=== PATIENT | female | born 1980 | race Caucasian/White ===

== ENCOUNTER → 2020-05-27 14:21 | Outpatient (CLI) | payer OTHER, SELFPAY ==
--- NOTE | ~2020-05-27 | US_ITS ---
EXAMINATION: US pelvic complete EXAM DATE: 05/27/2020 14:38 INDICATION: Missing IUD strings. TECHNIQUE: Pelvic transabdominal sonogram was performed. There are multiple grayscale and Doppler im ages available for interpretation. Comparison is made to prior examination from 08/30/2016. FINDINGS: Uterus measures 10.6 x 3.1 x 3.4 cm, with IUD centrally located inside the endometrial cav ity. Endometrial stripe measures 4 mm, within normal limits. There is no free pelvic fluid. Right adnexa: The ovary measures 3.0 x 2.0 x 2.8 cm and is morphologically normal. Ovarian vascular f low confirmed. Left adnexa: The ovary measures 1.8 x 1.5 x 2.4 cm and is morphologically normal. Ovarian vascular fl ow confirmed. IMPRESSION: 1. Artifact from IUD at expected location Reviewed, dictated and finalized at location A.
== END ==
PROVIDERS: Visit Provider Obstetrics & Gynecology Gynecology
DX: T83.32XA Displacement of intrauterine contraceptive device, initial encounter (principal)
CPT/HCPCS: 76856

== ENCOUNTER 2021-02-15 07:30 | Outpatient (RCR) | payer OTHER, SELFPAY ==
--- NOTE | 2020-11-22 15:49 | PTOPEVAL ---
Thank you for referring Ruth Walsh to [facility].? The patient is scheduled to be seen for therapy?2 x/week for 5 weeks. Please review, sign, date and return this plan of care RANDELL. I agree with and certify that the following plan of care is medically necessary. Referring Physician Date Attending Provider: Fiordaliza Meade MD Referring Provider: Fiordaliza Meade MD/ NANCY Cobos Physical Therapy Evaluation Information Problem Diagnosis right knee and shoulder pain, right ankle sprain Onset 08/03 Cause stepping/twisting (ankle) Subjective Information right ankle: she broke her Query Text:As Reported By Patient/ ankle fracture of fibula and Family level 3 sprain on 08/03. She went to Urgent Care, then to ortho Md at [facility]. She was in a boot for 6 wks, then ankle brace for 1 wk. She is not wearing a brace for the ankle. She reports weakness of the ankle and limited range. Difficulty with some stretches of crossed leg. She c/o pain on the lateral aspect of the ankle. Reports instability with steps. She has not preformed any exercises or therapy after boot removed. She has difficulty with squating motion. She does a combo cross fit and GIA class right knee: pain on medial aspect of patella. Has been hurting since she hurt the ankle. Pain with end range flexion, rowing, steps, squating. right shoulder: landed on right UE when she fell off the step. Pain is the lateral aspect of shoulder. Pain with lifting or reaching behind her back, weighted activities of UE. Pain Assessment Right Ankle(s) Reported Pain Level 1 Pain Description Aching,Dull,Sharp Pain Frequency Continuous Lowest Pain Intensity 1 Greatest Pain Intensity 5 Pain Aggravating Factors Exercise/Activity,Stair
--- NOTE | 2020-11-29 13:28 | PCPTNOTE ---
Patient called & cancelled scheduled appointment this date due to bad weather.
--- NOTE | 2020-12-08 07:28 | PCPTNOTE ---
Patient called & cancelled scheduled appointment this date due to car being in shop and won't have any transportation.
--- NOTE | 2020-12-27 14:29 | PTOPEVAL ---
Thank you for referring Ruth Walsh to [facility].? The patient is scheduled to be seen for therapy?2 x/week for 3 weeks to address shoulder and knee impairments. . Please review, sign, date and return this plan of care RANDELL. I agree with and certify that the following plan of care is medically necessary. Referring Physician Date Attending Provider: Fiordaliza Meade MD Referring Provider: Edy Candelario PA-C Physical Therapy Progress Note Diagnosis right knee and shoulder pain, right ankle sprain Onset 08/03 Cause stepping/twisting (ankle) Additional Evaluation Detail right ankle: ankle fracture of fibula and level 3 sprain on 08/03. She was in a boot for 6 wks, then ankle brace for 1 wk. Subjective Information She reports her ankle does Query Text:As Reported By Patient/ feel better as a result of Family therapy. The ankle range has improved. She has increased ankle pain with crossing her ankles. She c/o stiffness of her ankle in the morning. Improved ability to perform steps. She has improved shoulder motion for reaching behind. 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 She has sharp pain when sleeping on right shoulder for prolonged period. Reports improved knee pain with activities. Improved tolerance with steps and squating activities. Kneeling on the knee is painful. She has been exercising at home with improved tolerance. She has increased knee pain when her form is poor with lunges and squats. She has been more aware of her form. Pain Assessment Right Ankle(s) Reported Pain Level 0 Pain Description Aching Lowest Pain Intensity 0 Greatest Pain Intensity 2 Pain Aggravating Factors Weight Bearing/Standing Right Knee(s) Reported Pain Level 1 Pain Description Aching,Sharp Lowest Pain Intensity 0 Greatest Pain Intensity 3 Right Sh
--- NOTE | 2021-01-19 09:24 | PCPTNOTE ---
Patient called & cancelled scheduled appointment this date and rescheduled for next week.
--- NOTE | 2021-01-24 13:30 | PCPTNOTE ---
Patient called & cancelled scheduled appointment this date due to feeling sick. She did not reschedule at this time.
--- NOTE | 2021-02-15 11:15 | PTOPEVAL ---
Thank you for referring Ruth Walsh to [facility].? Ruth has received 16 therapy visits to address her right shoulder, knee and ankle injury. She cancelled 4 visits. She demonstrates no limitation with ankle and knee with objective measures except mild hip abduction weakness. She denies limitations with LE with daily activities and fitness routine. She demonstrate WFL right shoulder motion and 5/5 strength except for flexion strength. She demonstrates improve scapular stability strength since receiving therapy. She continues to demonstrate test and measures consistent with shoulder impingement and possible internal derangement of shoulder muscles. Will continue PT 1x/wk x 4 weeks to address strengthening exercise for home program. Please review, sign, date and return this plan of care RANDELL. I agree with and certify that the following plan of care is medically necessary. Referring Physician Date Attending Provider: Fiordaliza Meade MD Referring Provider: NANCY Robles Physical Therapy Progress Note Diagnosis right knee and shoulder pain, right ankle sprain Onset 08/03 initial, re-injury to shoulder 01/28/21 Cause stepping/twisting (ankle) Additional Evaluation Detail right ankle: ankle fracture of fibula and level 3 sprain on 08/03. She was in a boot for 6 wks, then ankle brace for 1 wk. Subjective Information SHe denies any pain with her Query Text:As Reported By Patient/ knee. States the proper Family position with activities has corrected the problem. She has right shoulder pain with reaching in all directions. 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 She was seen by her MD, where she was DX with shoulder sprain. Denies any problems with the ankle. Denies any problems with her exercise class. Denies any problems with sleeping, but she does not sleep on her right side. Pain Assessment Right Ankle(s) Reported Pain Level 0 Lowest Pain Intensity 0 Greatest Pain Intensity 0 Right Knee(s) Reported Pain Level 0 Lowest Pain Intensity 0 Greatest Pain Intensity 0 Right Shoulder(s) Reported Pain Level 2 Pain Description Aching,Dul
--- NOTE | 2021-02-17 11:24 | PCPTNOTE ---
This treatment is being continued on visit 17 to number [id number]. Please see documentation on both accounts to view progress. Completed interventions, outcomes, and problems have been marked as Inactive to facilitate the copying of the Care plan routine for recurring accounts.
== END 2021-02-17 11:02 | disposition home or self-care (01) ==
LOC: ANHPT 07:30
PROVIDERS: PCP Family Medicine; Referring Provider Family Medicine; Visit Provider Family Medicine
DX: M25.511 Pain in right shoulder (principal); M25.561 Pain in right knee; S93.401D Sprain of unspecified ligament of right ankle, subsequent encounter
CPT/HCPCS: 97110; 97112; 97140; 97162

== ENCOUNTER 2021-03-17 09:15 | Outpatient (RCR) | payer OTHER, SELFPAY ==
--- NOTE | 2021-02-17 11:24 | PCPTNOTE ---
Addendum entered by Sol Flores, PT 02/17/21 11:25: from previous account [id number]. Original Note: The treatment documented on this account is a continuation of the treatment documented on visit number 17 to [id number]. Please see documentation on both accounts to view progress. The Plan of Care has been transitioned and updated within the new V#. I have addressed and agree with the discipline specific Problems, Interventions, and Goals for the current certification period. Completed interventions, outcomes, and problems have been marked as Inactive to facilitate the copying of the Care plan routine for recurring accounts.
--- NOTE | 2021-03-10 09:07 | PCPTNOTE ---
Patient called & cancelled scheduled appointment this date no reason given.
--- NOTE | 2021-03-17 09:58 | PTOPEVAL ---
Thank you for referring Ruth Walsh to [facility].? Ruth has been seen for 19 therapy visits to address her shoulder, knee and ankle injury. She demonstrates ability to perform normal daily and fitness routine without limitations. She is indep with her home exercise program. Her therapy goals have been achieved at this time. Will plan to DC skilled therapy service with Ruth to continue with home program. Please review, sign, date and return this discharge note RANDELL. I agree with and certify that the following plan of care is medically necessary. Referring Physician Date Attending Provider: Fiordaliza Meade MD Referring Provider: Edy Candelario MD Physical Therapy Discharge Note Diagnosis right knee and shoulder pain, right ankle sprain Onset 08/03 initial, re-injury to shoulder 01/28/21 Cause stepping/twisting (ankle) Additional Evaluation Detail right ankle: ankle fracture of fibula and level 3 sprain on 08/03. She was in a boot for 6 wks, then ankle brace for 1 wk. Subjective Information She denies any significant Query Text:As Reported By Patient/ pain of her shoulder. She is Family able to sleep on the shoulder for short periods of time. She is able to reaching all directions without limitations . She has not been to her exercise class. She denies any issues with yardwork with only slight soreness. She does feel the UE is still weak. Pain Assessment Self Report Pain Assessment Right Shoulder(s) Reported Pain Level 0 Pain Frequency Intermittent Lowest Pain Intensity 0 Greatest Pain Intensity 2 Upper Extremity Range of Motion Scapular/ Shoulder Range of Motion Left Shoulder Flexion - Active 170 Shoulder Extension - Active 45 Shoulder Abduction - Active 170 Shoulder Medial Rotation - Active T9 Query Text:Reach Behind the Back Shoulder Lateral Rotation - Active T2 Query Text:Reach Behind the Head Right Shoulder Flexion - Active 174 Shoulder Extension - Active 40 Shoulder Abduction - Active 170 Shoulder Medial Rotation - Active 85 Shoulder Medial Rotation - Active T9 Query Text:Reach Behind the Back Shoulder Lateral Rotation - Active 90 Shoulder Lateral Rotation - Active T2 Query Text:Reach Behind the Head Upper Extremity Muscle Strength Testing General Upper Extremity Strength Gross Upper Extremity Strength Comments left shoulder 5/ except flex:
== END 2021-03-17 10:56 | disposition home or self-care (01) ==
LOC: ANHPT 09:15
PROVIDERS: PCP Family Medicine; Referring Provider Family Medicine; Visit Provider Family Medicine
DX: M25.511 Pain in right shoulder (principal); M25.561 Pain in right knee; S93.401D Sprain of unspecified ligament of right ankle, subsequent encounter
CPT/HCPCS: 97110

== ENCOUNTER 2021-05-17 12:01 | Outpatient (CLI) | payer OTHER, SELFPAY ==
--- NOTE | ~2021-05-17 | XR_ITS ---
XR wrist LT w scaphoid DATE: 05/17/2021 12:40 INDICATION: Fall 7 months ago. Left wrist pain. TECHNIQUE: 4 views COMPARISON: None FINDINGS: No fracture or dislocation, periosteal reaction or bone destruction. Joint spaces are prese rved. No erosive change or chondrocalcinosis. IMPRESSION: Negative Reviewed, dictated and finalized at location B. IMPRESSION: Negative
--- NOTE | ~2021-05-17 | XR_ITS ---
XR hand LT min 3V DATE: 05/17/2021 12:40 INDICATION: Fall 7 months ago. First metacarpophalangeal pain, pain in the fingers TECHNIQUE: 3 views COMPARISON: None FINDINGS: No fracture or dislocation, periosteal reaction or bone destruction, joint space narrowing, erosive change or chondrocalcinosis. IMPRESSION: Negative Reviewed, dictated and finalized at location B. IMPRESSION: Negative
== END 2021-05-17 12:02 | disposition home or self-care (01) ==
LOC: ANHIMG 12:07
PROVIDERS: PCP Family Medicine; Visit Provider Family Medicine
DX: M79.645 Pain in left finger(s) (principal)
CPT/HCPCS: 73110; 73130

== ENCOUNTER 2022-11-06 17:26 | Outpatient (CLI) | payer OTHER, SELFPAY ==
--- NOTE | ~2022-11-06 | CT_ITS ---
Non-contrast CT scan of the Abdomen and Pelvis Clinical indication: Abdominal pain and bloating Technique: 5 mm axial scans were obtained through the abdomen and pelvis without intravenous or oral contrast. Dose reduction technique was used on this scan by utilizing automated exposure control and iterative reconstruction technique. The dose-length product (DLP) was 224.97 mGy-cm. Findings: Images through the lung bases reveal no abnormalities. There is no evidence of renal or ureteral calculi. The kidneys and the ureters are nondilated. The liver, spleen, pancreas, gallbladder, and adrenals appear normal. There is no aortic aneurysm. There is no evidence of bowel obstruction. There is evidence of presumed prior bariatric surgery. Images through the pelvis were performed. There is no evidence of ascites or lymphadenopathy. Urinary bladder unremarkable. IUD in place. Probable small right adnexal cyst. Impression: Probable small right adnexal cyst. IUD in place. Prior bariatric surgery. Reviewed, dictated and finalized at [facility]. ATION OFFICER Impression: Probable small right adnexal cyst. IUD in place. Prior bariatric surgery.
== END 2022-11-06 17:27 | disposition home or self-care (01) ==
PROVIDERS: PCP Family Medicine; Visit Provider Physician Assistant Medical
DX: R10.9 Unspecified abdominal pain (principal); Z97.5 Presence of (intrauterine) contraceptive device; Z98.84 Bariatric surgery status
CPT/HCPCS: 74176

== ENCOUNTER 2023-01-25 15:52 | Outpatient (CLI) | payer OTHER, SELFPAY ==
--- NOTE | ~2023-01-25 | US_ITS ---
EXAMINATION: US pelvic complete DATE: 01/25/2023 16:40 INDICATION: Follow-up abnormal cyst Comparison:CT dated 11/06/2022 TECHNIQUE: Multiple transabdominal sonographic images of the pelvis performed. FINDINGS: The uterus measures 11 x 3.1 x 4.2 cm. There is an IUD present in the endometrium. The endo metrial complex measures . The right ovary measures 2.3 x 3.5 x 1.7 cm and the left ovary measures 3.5 x 1.7 x 2.7 cm. There ar e small follicles in each ovary. There is a simple left ovarian cyst measuring 2.3 cm. Normal doppler signal in both ovaries. There is no free fluid in the pelvis. There are no abnormal masses seen on either side. IMPRESSION: 1. Simple left ovarian cyst measuring 2.3 cm. Reviewed, dictated and finalized at location L.
--- NOTE | ~2023-01-25 | US_ITS ---
Thyroid ultrasound. Clinical History: Thyromegaly Findings: Real-time sonography of the thyroid gland was performed. The right lobe measures 4.1 x 2.1 x 2.0 cm. The left lobe measures 4.0 x 1.6 x 2.0 cm. The isthmus is 3 mm in AP diameter. There is a 1.4 x 1.3 x 1.0 cm hyperechoic solid nodule at the right lower pole. There is a 1.5 x 1.3 x 1.3 cm solid mixed hyperechoic and hypoechoic nodule at the right midpole. There is a 0.5 cm cystic nodule at the left upper pole. There is a 0.5 cm cystic nodule at the left l ower pole. Impression: 1.5 cm solid mixed hyperechoic and hypoechoic nodule at the right midpole. This is consistent with TR -4 nodule, and given size, FNA should be considered. 1.4 cm hyperechoic right lower pole solid nodule is consistent with a TR-3 nodule. Given size, annual follow-up ultrasound advised. Reviewed, dictated and finalized at location M. Impression: 1.5 cm solid mixed hyperechoic and hypoechoic nodule at the right midpole. This is consistent with TR-4 nodule, and given size, FNA should be considered. 1.4 cm hyperechoic right lower pole solid nodule is consistent with a TR-3 nodu le. Given size, annual follow-up ultrasound advised.
== END 2023-01-25 15:53 | disposition home or self-care (01) ==
PROVIDERS: PCP Family Medicine; Visit Provider Obstetrics & Gynecology Gynecology
DX: E01.0 Iodine-deficiency related diffuse (endemic) goiter (principal); N83.201 Unspecified ovarian cyst, right side; N83.292 Other ovarian cyst, left side
CPT/HCPCS: 76536; 76856

== ENCOUNTER → 2023-05-28 10:21 | Outpatient (CLI) | payer OTHER, SELFPAY ==
--- NOTE | ~2023-05-28 | XR_ITS ---
EXAMINATION: XR sacroiliac joints min 3V DATE: 05/28/2023 10:46 INDICATION: Sacrococcygeal disorders, not elsewhere classified. TECHNIQUE: 3 views of the sacrum and coccyx were obtained. COMPARISON: CT abdomen and pelvis 11/06/2022 FINDINGS: There is lumbar dextrocurvature and severe lower lumbar spondylosis. No fracture. There is mild bilateral sacroiliac joint osteoarthritis. There is an intrauterine device in expected position. IMPRESSION: 1. Mild bilateral sacroiliac joint osteoarthritis. Reviewed, dictated and finalized at location A.
--- NOTE | ~2023-05-28 | XR_ITS ---
EXAMINATION: XR lumbar spine min 4V DATE: 05/28/2023 10:46 INDICATION: Lumbar spondylosis. TECHNIQUE: 5 views of lumbar spine were obtained. COMPARISON: None. FINDINGS: There is 8 degrees dextrocurvature of lumbar spine. Vertebral body heights are normal. Ther e is severely decreased disc height at L5-S1 with endplate remodeling. There is multilevel mild facet joint osteoarthritis. There is an intrauterine device in expected position. IMPRESSION: 1. Severe lower lumbar spondylosis. Reviewed, dictated and finalized at location A.
== END ==
PROVIDERS: PCP Family Medicine; Visit Provider Family Medicine
DX: M51.9 Unspecified thoracic, thoracolumbar and lumbosacral intervertebral disc disorder (principal); M43.06 Spondylolysis, lumbar region; M46.1 Sacroiliitis, not elsewhere classified; M47.898 Other spondylosis, sacral and sacrococcygeal region
CPT/HCPCS: 72110; 72202

== ENCOUNTER 2023-07-19 07:06 | Day surgery (SDC) | payer OTHER, SELFPAY ==
[2022-11-13 10:22] VITALS: BMI 23.0
[2023-07-05 07:45] VITALS: BMI 22.9
[2023-07-19 08:45] VITALS: BP 104/83; PULSE 80; RESP 20; TEMP 36.8; O2SAT 100
--- NOTE | 2023-07-19 09:05 | WPDANESEPPF ---
Anes - Initial Pre Proc Eval Procedure: Operation Date: 07/19/23 10:00 Proposed Procedures p Esophagogastroduodenoscopy - Ad Dominguez MD Date/Time: 07/19/23 09:05 Surgeon: Ad Dominguez MD Pre Op Diagnosis: Left Upper Abdominal Pain Patient Data Age: 43 Gender: F Height: 1.57 m Weight: 57 kg Allergies Allergy/AdvReac Type Severity Reaction Status Date / Time No Known Allergies Allergy Verified 07/05/23 07:47 Home Medications Medication Instructions Recorded Confirmed Type alprazolam 1 mg tablet,extended 1 mg PO DAILY 09/19/19 07/05/23 History release 24 hr (Xanax XR) bupropion HCl 300 mg 24 hr tablet, 300 mg PO QAM 09/19/19 07/05/23 History extended release (Wellbutrin XL) fluoxetine 40 mg capsule (Prozac) 40 mg PO QAM 09/19/19 07/05/23 History azelastine 137 mcg (0.1 %) nasal 137 mcg intranasal Q12H 10/22/20 07/05/23 History spray aerosol fluticasone propionate 50 1 spray intranasal DAILY 10/22/20 07/05/23 History mcg/actuation nasal spray,suspension lamotrigine 25 mg tablet 50 mg PO DAILY 10/22/20 07/05/23 History levocetirizine 5 mg tablet (Xyzal) 5 mg PO DAILY 10/22/20 07/05/23 History propranolol 20 mg tablet 20 mg PO Q12H 10/22/20 07/05/23 History vitamin B complex (B 1 tablet PO DAILY 10/22/20 07/05/23 History Complex-Vitamin B12 tablet) metformin 1,000 mg tablet 1,000 mg PO DAILY 05/23/22 07/05/23 History semaglutide 0.25 mg or 0.5 mg (2 0.25 mg subcut WEEKLY 05/23/22 07/05/23 History mg/1.5 mL) subcutaneous pen injector (Ozempic) omeprazole 20 mg capsule,delayed 20 mg PO DAILY #90 caps 12/25/22 07/05/23 Rx release spironolactone 50 mg tablet See Rx Instructions PO BID #180 04/26/23 07/05/23 Rx tabs Patient hx anesthesia problems: none Family hx anesthesia problems: none Results Review: All pre-operative results and documents have been reviewed as part of the pre-operative evaluation. PMFSH Past Medical History Medical History History of gastrectomy Insulin resistance Surgical History Surgical History H/O section History of carpal tunnel surgery Hx of tonsillectomy Family History Family History Other Depression Family history of alcoholism Social History Social History Smoking packs per day: 0.3 Smoking cigarettes per day: 6.0 Years smoked: 2 Smoking pack-years: 0.60 Smoking status: Never smoker Second hand tobacco smoke exposure: No Additional smoking assessment comments: Pt smoked socially for 2 years, quit over 20 years ago Alcohol intake: current Drinks per week: 4 Alcohol use details: 2-3x week Substance use: never Substance use type: does not use Lack of Transportation: No Lack of Food: Never True Current Housing: I Have Housing Concerned About Future Housing: No Difficulty Paying Gas/Electric Bills: No Difficulty Paying for Meds: No Currently Unemployed: No Education: Master's Degree or Higher Difficulty w/ Childcare or Family Care: No Living arrangements: with family Occupation/Education: occupation Gender identity (if verbalized by the patient): Female Spiritual care concerns: No Anes - Eval Final PreProcedure Day of Procedure 07/19/23 09:05 Patient weight: normal Heart: regular rate and rhythm Lungs: clear to auscultation Airway: Mallampati scale class II Neurological: alert and oriented Last oral intake: >/= 8 hours ASA classification: III Emergent: no Anesthetic plan: proceed Anesthesia type and monitoring: general GIVS and standard monitoring Results Review: All pre-operative results and documents have been reviewed as part of the pre-operative evaluation. Informed Consent: The patient'
[2023-07-19] MEDS: LACTATED RINGERS 1,000 ML 150 ML IV CONT (09:07)
--- NOTE | 2023-07-19 09:59 | PM.HPGS ---
History of Present Illness History of Present Illness Consent: Risks, benefits, and alternatives have been discussed and questions answered. Patient agrees to proceed with procedure. Chief complaint: Left Upper Abdominal Pain Narrative: Ruth Walsh is a 43 year old female with intermittent luq pain for months, had gastric sleeve (had egd prior her surgery), CT scan and blood work unremarkable. Review of Systems Constitutional: Constitutional: Denies headache(s) and Denies weakness Eyes: Eyes: Denies blurry vision ENT: Reports Normal hearing present, Denies headache(s) and Denies neck pain Cardiovascular: Cardiovascular: Denies chest pain and Denies dyspnea Respiratory: Respiratory: Denies dyspnea Gastrointestinal: Gastrointestinal: Reports no additional gastrointestinal complaints Genitourinary: Genitourinary: Denies dysuria Musculoskeletal: Musculoskeletal: Denies neck pain Integumentary/Breasts: Skin/Breast: Denies dry skin Neurologic: Reports Normal hearing present, Denies headache(s) and Denies weakness Psychiatric: Psychiatric: Denies anxiety Endocrine: Endocrine: Denies change in body appearance Hematologic/Lymphatic: Hematologic/Lymphatic: Denies easy bleeding Allergic/Immunologic: Allergic/Immunologic: Denies urticaria PMFSH Past Medical History Medical History (Updated 07/19/23 @ 10:00 by Ad Dominguez MD) Chronic LUQ pain History of gastrectomy Insulin resistance Surgical History Surgical History H/O section History of carpal tunnel surgery Hx of tonsillectomy Family History Family History Other Depression Family history of alcoholism Social History Social History Smoking packs per day: 0.3 Smoking cigarettes per day: 6.0 Years smoked: 2 Smoking pack-years: 0.60 Smoking status: Never smoker Second hand tobacco smoke exposure: No Additional smoking assessment comments: Pt smoked socially for 2 years, quit over 20 years ago Alcohol intake: current Drinks per week: 4 Alcohol use details: 2-3x week Substance use: never Substance use type: does not use Lack of Transportation: No Lack of Food: Never True Current Housing: I Have Housing Concerned About Future Housing: No Difficulty Paying Gas/Electric Bills: No Difficulty Paying for Meds: No Currently Unemployed: No Education: Master's Degree or Higher Difficulty w/ Childcare or Family Care: No Living arrangements: with family Occupation/Education: occupation Gender identity (if verbalized by the patient): Female Spiritual care concerns: No Meds Home Medications and Allergies Home Medications Medication Instructions Recorded Confirmed Type alprazolam 1 mg tablet,extended 1 mg PO DAILY 09/19/19 07/19/23 History release 24 hr (Xanax XR) bupropion HCl 300 mg 24 hr tablet, 300 mg PO QAM 09/19/19 07/19/23 History extended release (Wellbutrin XL) fluoxetine 40 mg capsule (Prozac) 40 mg PO QAM 09/19/19 07/19/23 History azelastine 137 mcg (0.1 %) nasal 137 mcg intranasal Q12H 10/22/20 07/19/23 History spray aerosol fluticasone propionate 50 1 spray intranasal DAILY 10/22/20 07/19/23 History mcg/actuation nasal spray,suspension lamotrigine 25 mg tablet 50 mg PO DAILY 10/22/20 07/19/23 History levocetirizine 5 mg tablet (Xyzal) 5 mg PO DAILY 10/22/20 07/19/23 History propranolol 20 mg tablet 20 mg PO Q12H 10/22/20 07/19/23 History vitamin B complex (B 1 tablet PO DAILY 10/22/20 07/19/23 History Complex-Vitamin B12 tablet) metformin 1,000 mg tablet 1,000 mg PO DAILY 05/23/22 07/19/23 History semaglutide 0.25 mg or 0.5 mg (2 0.25 mg subcut WEEKLY 05/23/22 07/19/23 History mg/1.5 mL) subcutaneous pen injector (Ozempic) omeprazole 20 mg capsule,delayed 20 mg PO
[2023-07-19 10:12] VITALS: BP 96/70; PULSE 83; RESP 15; O2SAT 100
[2023-07-19 10:22] VITALS: BP 106/72; PULSE 72; RESP 14; O2SAT 99
[2023-07-19 10:32] VITALS: BP 96/66; PULSE 84; RESP 16; O2SAT 100
--- NOTE | 2023-07-19 10:46 | WPDANESPN ---
Anes - Prog Note Post-Op Date/Time: 07/19/23 10:46 Cardiovascular status: normal Respiratory status: normal Airway patency: baseline Mental status: baseline Post-Op hydration status: normal Vital Signs: Last Vital Signs Temp 36.8 C 07/19/23 08:45 Pulse 84 07/19/23 10:32 Resp 16 07/19/23 10:32 BP 96/66 L 07/19/23 10:32 Pulse Ox 100 07/19/23 10:32 O2 Del Method Room Air 07/19/23 10:32 Pain Score (VAS): 0 I/O: Intake & Output 07/18/23 07/19/23 07/19/23 23:59 07:59 15:59 Intake Total 350 Balance 350 Patient Feedback: Patient satisfied with anesthetic care.
== END 2023-07-19 10:45 | disposition home or self-care (01) ==
PROVIDERS: PCP Family Medicine; Visit Provider Internal Medicine Gastroenterology
PROC: 0DJ08ZZ Inspection of Upper Intestinal Tract, Via Natural or Artificial Opening Endoscopic (ICD-10-PCS; CPT 43235; principal; 2023-07-19 10:00)
DX: R10.12 Left upper quadrant pain (principal); K44.9 Diaphragmatic hernia without obstruction or gangrene
CPT/HCPCS: 43239

== ENCOUNTER 2023-07-19 09:00 | Outpatient (NON) | payer OTHER, SELFPAY | END 2023-07-19 09:01 | disposition home or self-care (01) | PROVIDERS: PCP Family Medicine; Visit Provider Internal Medicine Gastroenterology | DX: R10.12 Left upper quadrant pain (principal); G89.29 Other chronic pain | CPT/HCPCS: 88305 ==

== ENCOUNTER 2024-05-27 15:00 | Outpatient (RCR) | payer OTHER, SELFPAY ==
--- NOTE | 2024-04-29 08:59 | OPREHPOC ---
Outpatient Therapy Plan of Care This is a Multidisciplinary Plan of Care that may contain components documented by all disciplines (PT, OT, and ST.) PT Problem 1 PT Problem #1 Knowledge Deficit PT Goal 1 Goal *indep with HEP * demonstrate correct posture of back with lifting and exercises Target Visit 8 PT Problem 2 PT Problem #2 Pain PT Goal 1 Goal 1* pt report pain at worst of 3/10 2* radicular pain to R knee at worst 3* self assessment Oswestry rating of 18% limitation in activity Target Visit 8 PT Problem 3 PT Problem #3 Impaired Strength PT Goal 1 Goal increase strength of trunk and hips, to improve stability to spine 1* single leg standing R 30 seconds with good stability 2* single leg standing L 30 seconds with good stability 3* pt perform 20 reps of mat exercises with good stability 4* pt perform 15 reps of sitting ball exercises with good stability Target Visit 8
--- NOTE | 2024-04-29 08:59 | PTOPEVAL1 ---
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 decrease pain: rest, over the counter- tylenol, ibuprofen; heat/ hot bath, ice, stretching sleeping- sometimes disrupted Assessment PT Clinical Summary Ruth has the diagnosis of [id number] pain. She reports chronic issues with back pain, recently into her R leg and more pain in her back, limiting her activity level. 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 Self assessment Oswestry rating of 26% limitation in activity level. With the evaluation: flexibility of trunk and hips is WNL, with reports of tightness R piriformis with supine stretch; pain is increased with trunk extension motion; sacral position with R elevation and forward rotation; weakness of trunk and hips. Skilled PT services are indicted for treatment of back pain/ sacral-iliac dysfunction: modalities to decrease pain, therapeutic exercises to increase strength and stabilize lumbar- sacral and education for HEP and posture correction, with pain management techniques. Plan of Care Interventions Electrical Stimulation,Hot Pack/Cold Pack,Manual Thera
--- NOTE | 2024-05-15 13:47 | PCPTNOTE ---
Pt canceled due to being out of town.
--- NOTE | 2024-05-27 16:38 | PTOPDC ---
Assessment and note entered by Marquez Zambrano, PT Evaluation Information Assessment Status Discharge Diagnosis thoracic- lumbar-sacral pain ICD-10 Condition Codes (PT) M54.6,Pain in low back M54.50,R26.9,Weakness R53.1 Onset one year Subjective Information Reports that overall she thinks the exercises are helping. She reports that she still has a lot of stiffness in the morning. pain has not lessened in the morning but the exercises have overall helped . Reported Pain Level Pain Score 0: Self Report Assessment PT Clinical Summary Patient showing great improvement in hip mobility. 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 Plan of Care PT Services Indicated D/C to HEP
== END 2024-05-28 09:52 | disposition home or self-care (01) ==
LOC: ANHPT 15:00
PROVIDERS: PCP Family Medicine; Visit Provider Family Medicine
DX: M51.9 Unspecified thoracic, thoracolumbar and lumbosacral intervertebral disc disorder (principal); M53.3 Sacrococcygeal disorders, not elsewhere classified
CPT/HCPCS: 97014; 97110; 97112; 97140; 97161; 97530; G0283

== ENCOUNTER 2024-06-17 15:52 | Outpatient (CLI) | payer OTHER, SELFPAY ==
--- NOTE | ~2024-06-17 | CT_ITS ---
EXAMINATION: CT sinus wo con DATE: 06/17/2024 16:13 INDICATION: Chronic sinusitis, unspecified. TECHNIQUE: Computed tomography (CT) of the paranasal sinuses was performed without intravenous contra st. Iterative reconstruction technique was employed. The dose-length product was 293.28 mGy-cm. COMPARISON: None FINDINGS: The frontal, ethmoid, sphenoid, and maxillary sinuses are clear. There is leftward deviatio n of the nasal septum. The middle turbinates are paradoxical. The ostiomeatal units are patent. IMPRESSION: 1. Leftward deviation of the nasal septum. Reviewed, dictated and finalized at location A.
== END 2024-06-17 15:53 | disposition home or self-care (01) ==
PROVIDERS: PCP Family Medicine; Visit Provider Family Medicine
DX: J34.2 Deviated nasal septum (principal); J32.9 Chronic sinusitis, unspecified
CPT/HCPCS: 70486